=== PATIENT | female | born 1995 | race Caucasian/White ===

== ENCOUNTER → 2024-12-09 | Outpatient (CLI) | payer BC, SELFPAY ==
[2024-12-10 09:34] LABS: BVAG Candida Negative (Negative); Bacterial Vaginosis Markers Negative (Negative); Candida glabrata Negative (Negative); Candida krusei PCR Negative (Negative); Trichomonas Negative (Negative)
== END | disposition home or self-care (01) ==
PROVIDERS: Referring Provider Specialist; Visit Provider Specialist
DX: B37.89 Other sites of candidiasis (principal); N76.0 Acute vaginitis; A59.01 Trichomonal vulvovaginitis
CPT/HCPCS: 81514

== ENCOUNTER → 2024-12-16 | Outpatient (CLI) | payer BC, SELFPAY ==
[2024-12-16 12:06] LABS: Misc Send Out* See Sep Rpt; Quantiferon-TB* See Sep Rpt
[2024-12-16 12:50] LABS: Basophils % (Auto) 1 % (0-2.5); Eosinophils # (Auto) 0.1 Thou/mm3 (0.0-0.5); Eosinophils % (Auto) 2 % (0-10); Hemoglobin 12.8 g/dL (12.0-16.0); Immature Granulocytes % (Auto) 0 % (0-0); Immature Granulocytes Auto 0.03 Thou/mm3 (0.00-0.00); Lymphocytes # (Auto) 1.8 Thou/mm3 (1.0-4.8); Lymphocytes % (Auto) 24 % (10-50); Mean Corpuscular HGB Conc 34.6 g/dl (31.0-37.0); Mean Corpuscular Hemoglobin 29.8 pg (25.0-35.0); Mean Corpuscular Volume 86 fL (80-100); Monocytes # (Auto) 0.4 Thou/mm3 (0.0-0.8); Monocytes % (Auto) 5 % (0-12); Neutrophils % (Auto) 68 % (37-80); Nucleated Red Blood Cell % 0 /100 WBC (0); Platelet Count 287 Thou/mm3 (140-440); RDW Standard Deviation 36.5 fL (36.4-46.3); Red Blood Count 4.29 Miln/mm3 (4.00-5.20); White Blood Count 7.3 Thou/mm3 (3.6-11.0)
[2024-12-16 13:04] LABS: Creatinine (Component) 0.8 mg/dL (0.6-1.3); Glucose 172 mg/dL (74-106); eGFR > 60 See Note
[2024-12-16 13:05] LABS: Glucose Estimated Average 128 mg/dL (80-131); Hemoglobin A1C 6.1 % Hgb (4.8-6.0)
[2024-12-16 13:20] LABS: Hepatitis B Surface Antigen Non Reactive (Non React); Rubella, IgG Antibody Reactive (Immune)
[2024-12-16 13:38] LABS: Beta HCG,Quantitative 96855 mIU/mL (<5.0)
[2024-12-16 14:25] LABS: HIV (1&2) Antibody Rapid Non-Reactive
[2024-12-20 17:51] LABS: HCV RNA, PCR <15 NOT DETECTED IU/mL
[2024-12-21 06:55] LABS: HCV RNA, PCR Log IU <1.18 NOT DETECTED Log IU/mL; HIV Ag/Ab, 4th Gen NON-REACTIVE
== END | disposition home or self-care (01) ==
LOC: COPL 11:32
PROVIDERS: PCP Internal Medicine; Referring Provider Specialist; Visit Provider Specialist
DX: Z34.81 Encounter for supervision of other normal pregnancy, first trimester (principal); Z81.8 Family history of other mental and behavioral disorders
CPT/HCPCS: 36415; 81220; 81243; 82565; 82947; 83036; 84702; 85025; 86480; 86703; 86762; 86850; 86900; 86901; 87340; 87389; 87522

== ENCOUNTER → 2024-12-16 | Outpatient (CLI) | payer BC, SELFPAY ==
[2024-12-16 15:34] LABS: Collection Type, Urine Clean Catch
[2024-12-16 17:11] LABS: Amphetamine/Methamp Scrn,U Negative (Negative); Barbiturate Screen,Urine Negative (Negative); Benzodiazepines Screen,Urine Negative (Negative); Benzoylecgonine Screen, Ur Negative (Negative); Fentanyl Screen,Urine Negative (Negative); Opiate Screen,Urine Negative (Negative); THC Screen,Urine Positive (Negative)
[2024-12-16 17:16] LABS: Bilirubin,Urine Negative (Negative); Blood,Urine Negative (Negative); Clarity,Urine Clear (Clear/Hazy); Color,Urine Yellow (Lt Yel-Yel); Glucose, Urine Negative (Negative); Ketones,Urine 1+ (Negative); Leukocyte Esterase,Urine Negative (Negative); Nitrite,Urine Negative (Negative); Protein,Urine Negative (Neg - Trace); RBC,Urine 3 /hpf (0-3); Specific Gravity,Urine 1.024 (1.001-1.035); Squamous Epithelial Cell,Urine 8 /hpf (0-5); Urobilinogen,Urine Negative mg/dL (0.0-1.0); WBC,Urine 2 /hpf (0-5)
== END | disposition home or self-care (01) ==
LOC: SLDO 15:08
PROVIDERS: Referring Provider Specialist; Visit Provider Specialist
DX: Z34.81 Encounter for supervision of other normal pregnancy, first trimester (principal)
CPT/HCPCS: 80307; 81001; 87086

== ENCOUNTER → 2025-02-10 | Outpatient (CLI) | payer BC, SELFPAY ==
[2025-02-10 17:52] LABS: Basophils % (Auto) 0 % (0-2.5); Eosinophils # (Auto) 0.3 Thou/mm3 (0.0-0.5); Eosinophils % (Auto) 4 % (0-10); Hematocrit 35.3 % (36.0-46.0); Hemoglobin 11.7 g/dL (12.0-16.0); Immature Granulocytes % (Auto) 1 % (0-0); Immature Granulocytes Auto 0.04 Thou/mm3 (0.00-0.00); Lymphocytes % (Auto) 24 % (10-50); Mean Corpuscular HGB Conc 33.1 g/dl (31.0-37.0); Mean Corpuscular Hemoglobin 30.1 pg (25.0-35.0); Mean Corpuscular Volume 91 fL (80-100); Monocytes # (Auto) 0.5 Thou/mm3 (0.0-0.8); Monocytes % (Auto) 6 % (0-12); Neutrophils # (Auto) 5.5 Thou/mm3 (1.8-7.7); Neutrophils % (Auto) 65 % (37-80); Nucleated Red Blood Cell % 0 /100 WBC (0); Platelet Count 266 Thou/mm3 (140-440); RDW Standard Deviation 41.9 fL (36.4-46.3); Red Blood Count 3.89 Miln/mm3 (4.00-5.20); White Blood Count 8.4 Thou/mm3 (3.6-11.0)
[2025-02-10 20:40] LABS: Glucose Estimated Average 111 mg/dL (80-131); Hemoglobin A1C 5.5 % Hgb (4.8-6.0)
[2025-02-10 20:53] LABS: Alanine Aminotransferase 8 U/L (10-49); Albumin, Serum 3.9 gm/dL (3.5-5.0); Albumin/Globulin Ratio 1.9 (1.2-2.2); Alkaline Phosphatase 48 U/L (46-116); Anion Gap 11 (7-16); Aspartate Amino Transferase 11 U/L (0-34); BUN/Creatinine Ratio 12 Ratio (12-20); Bilirubin,Total 0.4 mg/dL (0.3-1.2); Blood Urea Nitrogen 7 mg/dL (9-23); Calcium 8.8 mg/dL (8.3-10.6); Calcium (Corrected) 8.9 mg/dL (8.5-10.1); Carbon Dioxide 24.1 mMol/L (20.0-31.0); Chloride 103 mMol/L (98-107); Creatinine (Component) 0.6 mg/dL (0.6-1.3); Free T4 (Free Thyroxine) 1.02 ng/dL (0.89-1.76); Globulin 2.1 gm/dL (2.3-3.5); Glucose 124 mg/dL (74-106); Osmolality,Calculated 274 (275-295); Potassium 3.9 mMol/L (3.4-5.1); Sodium 138 mMol/L (136-145); Thyroid Stimulating Hormone 1.29 uIU/mL (0.55-4.78); eGFR > 60 See Note
== END | disposition home or self-care (01) ==
LOC: SLDO 16:34
PROVIDERS: Referring Provider Specialist; Visit Provider Specialist
DX: O24.419 Gestational diabetes mellitus in pregnancy, unspecified control (principal); R53.83 Other fatigue; Z3A.00 Weeks of gestation of pregnancy not specified
CPT/HCPCS: 36415; 80053; 83036; 84439; 84443; 85025

== ENCOUNTER 2025-03-16 16:53 | Emergency (ER) | payer BC, SELFPAY ==
[2025-03-16 17:34] VITALS: BP 109/71; PULSE 100; RESP 18; TEMP 37.1; O2SAT 95
--- NOTE | 2025-03-16 17:58 | PD.EDNV ---
Nausea/Vomit./Diarrhea-RME/HPI General Chief complaint: General Adult/Misc Complain Stated complaint: SENT BY PCP FOR DEHYDRATION AND FLUID ADMIN Time Seen by Provider: 03/16/25 17:17 Arrival date/time: 03/16/25 16:53 29-year-old female presents to the emergency department today stating that she was having some nausea and vomiting patient reports that she is really only here for a work note patient reports being 20 weeks reports no abdominal pain no vaginal bleeding no pelvic pain patient reports has a follow-up with her SUSTAINABILITY SPECIALIST tomorrow. Patient reports he contacted her workplace Limitations: no limitations Related Data Allergies Allergy/AdvReac Type Severity Reaction Status Date / Time ciprofloxacin AdvReac Unknown Vomiting Verified 03/16/25 16:57 Review of Systems Review of Systems Systems Reviewed: All systems reviewed, normal except as documented Constitutional Constitutional: Reports system reviewed and no additional complaints, except as documented, Denies fever(s) and Denies headache(s) Eyes Eyes: Reports system reviewed and no additional complaints, except as documented and Denies blurry vision ENT Ears, Nose, Mouth, and Throat: Reports system reviewed and no additional complaints, except as documented, Denies headache(s), Denies nasal congestion and Denies nasal discharge Cardiovascular Cardiovascular: Reports system reviewed and no additional complaints, except as documented, Denies chest pain and Denies dyspnea Respiratory Respiratory: Reports system reviewed and no additional complaints, except as documented, Denies chest congestion, Denies cough and Denies dyspnea Gastrointestinal Gastrointestinal: Reports system reviewed and no additional complaints, except as documented, Denies abdominal pain, Reports nausea and Reports vomiting Integumentary/Breasts Skin/Breast: Reports system reviewed and no additional complaints, except as documented and Denies rash Neurologic Neurologic: Reports system reviewed and no additional complaints, except as documented, Reports as per HPI and Denies headache(s) Past Medical History Past Medical History CARDIAC: Negative Congestive Heart Failure RESPIRATORY: Negative Chronic Obstructive Pulmonary Disease (COPD) GENITOURINARY: Negative Renal Disease ENDOCRINE: Negative Diabetes Mellitus Type 1 or Diabetes Mellitus Type 2 Surgical History SURGICAL: Positive Tonsillectomy Social History SMOKING STATUS: Never smoker ED Exam General Limitations: Present no limitations General appearance: Present alert and in no apparent distress Head Head exam: Present atraumatic Eye Eye exam: Present normal appearance, PERRL and EOMI ENT ENT exam: Present normal exam, normal oropharynx and mucous membranes moist Neck Neck exam: Present normal inspection, full ROM and trachea midline Chest Chest inspection: Present normal inspection and symmetric chest wall rise Respiratory Respiratory exam: Present normal lung sounds bilaterally Cardiovascular Cardiovascular exam: Present regular rate, normal rhythm and normal heart sounds Abdominal Exam Abdominal exam: Present soft and normal bowel sounds Extremities Exam Extremities exam: Present normal inspection and full ROM Back Exam Back exam: Present normal inspection and full ROM Neurological Exam Neurological exam: Present alert, oriented X3, CN II-XII intact, normal gait and reflexes normal; Absent motor sensory deficit Psychiatric Psychiatric exam: Present normal affect and normal mood Skin Skin exam: Present warm, dry, intact and normal color Course Quality Measures none Vital Signs Vital signs: Vital Signs Temperature 98.7 F 03/16/25 17:34 Pulse Rate 100 03/16/25 17:34 Respiratory Rate 18 03/16/25 17:34 Blood Pressure 109/71 03/16/25 17:34 Pulse Oximetry (%) 95 03/16/25 17:34 Oxygen Delivery Method Room Air 03/16/25 17:34 O2 saturation 95% room air within normal limits Nausea/Vomiting/Diarrhea Patient data External records reviewed:: [facility] previous records Clinical information provided by:: patient Social determinants that could affect healthcare access:: none Patient has the following chronic illnesses:: None How is presenting disease/condition affected by chronic disease/condition?: no chronic disease Evaluation data The following diagnostics were reviewed and interpreted by me:: other (specify) Lab and/or radiology exams considered but not ordered:: Consider not ordered Interpretation Summary: N/A Medications / Prescriptions Medications / Prescriptions considered but not ordered:: No med Medication administrations:: No med Consultations Consultation(s) initiated? (list below): No Diagnosis Nausea Differential Diagnosis: gastroenteritis and other (Hyperemesis gravidarum) Most likely diagnosis given after review of the tests above:: Vomiting Admission Indicated Admission indicated?: not indicated Admission Request Was there a request for admission?: No Disposition Plan Disposition Plan: Discharge Discharge Attestation Discharge Attestation: The patient and all family members were given an opportunity to ask questions and understood the discharge instructions. Discharge instructions specifically effects, indications for sooner follow up or return to the emergency department, and the expected course of current diagnosis. Patient condition: Stable Discharge Plan Plan Patient Disposition: HOME (Self Care) Discharge Disposition comment: Stable Problem List Clinical Impression: Nausea and vomiting during Patient/Caregiver Discharge Instructions Education Materials: ED Vomiting (Adult) Additional Instructions: Please keep your appointment with your SUSTAINABILITY SPECIALIST tomorrow for worsening symptoms or concerns return immediately Print Language: Indonesian Stand Alone Forms: Lorelei Award Info., Work/School Release, Patient Portal Info Letter PA/[employer] Supervising Physician PA/[employer] Supervising Physician: dr stevenson
== END 2025-03-16 18:01 | disposition home or self-care (01) ==
LOC: SERX 18:02
PROVIDERS: Emergency Provider Emergency Medicine; PCP Internal Medicine
DX: O21.9 Vomiting of pregnancy, unspecified (principal); Z3A.20 20 weeks gestation of pregnancy
CPT/HCPCS: 99281

== ENCOUNTER → 2025-04-22 | Outpatient (CLI) | payer BC, SELFPAY ==
--- NOTE | 2025-04-22 | XR_ITS ---
Examination: PA chest single view TECHNIQUE: Upright PA chest single view Date and time: April 22, 2025 1317 hours INDICATIONS: Coughing one week. FINDINGS: Normal heart size Lungs are clear. Osseous structures are intact IMPRESSION: No active disease
== END | disposition home or self-care (01) ==
LOC: CDIM 11:57
PROVIDERS: PCP Internal Medicine; Referring Provider Specialist; Visit Provider Specialist
DX: J18.9 Pneumonia, unspecified organism (principal)
CPT/HCPCS: 71045

== ENCOUNTER → 2025-04-22 | Outpatient (CLI) | payer BC, SELFPAY ==
[2025-04-22 14:24] LABS: Coccid Serology, CF (UCD)* See Sep Rpt
== END | disposition home or self-care (01) ==
LOC: SLDO 14:15
PROVIDERS: Referring Provider Specialist; Visit Provider Specialist
DX: J18.9 Pneumonia, unspecified organism (principal)
CPT/HCPCS: 86171

== ENCOUNTER → 2025-05-26 | Outpatient (CLI) | payer BC, SELFPAY ==
[2025-05-26 16:27] LABS: Basophils # (Auto) 0.0 Thou/mm3 (0.0-0.2); Basophils % (Auto) 0 % (0-2.5); Eosinophils # (Auto) 0.3 Thou/mm3 (0.0-0.5); Eosinophils % (Auto) 3 % (0-10); Hematocrit 36.7 % (36.0-46.0); Hemoglobin 11.5 g/dL (12.0-16.0); Immature Granulocytes Auto 0.08 Thou/mm3 (0.00-0.00); Lymphocytes # (Auto) 1.9 Thou/mm3 (1.0-4.8); Lymphocytes % (Auto) 22 % (10-50); Mean Corpuscular HGB Conc 31.3 g/dl (31.0-37.0); Mean Corpuscular Hemoglobin 29.6 pg (25.0-35.0); Mean Corpuscular Volume 95 fL (80-100); Monocytes # (Auto) 0.6 Thou/mm3 (0.0-0.8); Monocytes % (Auto) 7 % (0-12); Neutrophils # (Auto) 5.9 Thou/mm3 (1.8-7.7); Neutrophils % (Auto) 67 % (37-80); Nucleated Red Blood Cell # 0.00 Thou/mm3 (0.00-0.00); Nucleated Red Blood Cell % 0 /100 WBC (0); Platelet Count 251 Thou/mm3 (140-440); RDW Standard Deviation 47.8 fL (36.4-46.3); Red Blood Count 3.88 Miln/mm3 (4.00-5.20); White Blood Count 8.8 Thou/mm3 (3.6-11.0)
[2025-05-26 17:01] LABS: Syphilis Nonreactive (Nonreactive)
== END | disposition home or self-care (01) ==
LOC: SLDO 14:44
PROVIDERS: Referring Provider Specialist; Visit Provider Specialist
DX: Z34.83 Encounter for supervision of other normal pregnancy, third trimester (principal)
CPT/HCPCS: 36415; 85025; 86780

== ENCOUNTER → 2025-07-04 | Outpatient (CLI) | payer BC, SELFPAY ==
[2025-07-05 07:48] LABS: BVAG Candida Negative (Negative); Bacterial Vaginosis Markers Negative (Negative); Candida glabrata Negative (Negative); Candida krusei PCR Negative (Negative); Trichomonas Negative (Negative)
== END | disposition home or self-care (01) ==
LOC: SLDO 14:22
PROVIDERS: Referring Provider Specialist; Visit Provider Specialist
DX: Z34.83 Encounter for supervision of other normal pregnancy, third trimester (principal)
CPT/HCPCS: 81514

== ENCOUNTER 2025-07-22 04:09 | Inpatient (IN) | payer BC, SELFPAY ==
[2025-07-21 11:43] LABS: Basophils # (Auto) 0.0 Thou/mm3 (0.0-0.2); Basophils % (Auto) 0 % (0-2.5); Eosinophils # (Auto) 0.4 Thou/mm3 (0.0-0.5); Eosinophils % (Auto) 5 % (0-10); Hematocrit 35.6 % (36.0-46.0); Hemoglobin 12.0 g/dL (12.0-16.0); Immature Granulocytes Auto 0.06 Thou/mm3 (0.00-0.00); Lymphocytes # (Auto) 2.1 Thou/mm3 (1.0-4.8); Lymphocytes % (Auto) 31 % (10-50); Mean Corpuscular HGB Conc 33.7 g/dl (31.0-37.0); Mean Corpuscular Hemoglobin 29.3 pg (25.0-35.0); Mean Corpuscular Volume 87 fL (80-100); Monocytes # (Auto) 0.5 Thou/mm3 (0.0-0.8); Monocytes % (Auto) 8 % (0-12); Neutrophils # (Auto) 3.8 Thou/mm3 (1.8-7.7); Neutrophils % (Auto) 55 % (37-80); Nucleated Red Blood Cell # 0.00 Thou/mm3 (0.00-0.00); Nucleated Red Blood Cell % 0 /100 WBC (0); Platelet Count 235 Thou/mm3 (140-440); RDW Standard Deviation 39.2 fL (36.4-46.3); Red Blood Count 4.10 Miln/mm3 (4.00-5.20); White Blood Count 6.8 Thou/mm3 (3.6-11.0)
[2025-07-21 11:58] LABS: INR 0.9 (0.9-1.3); Partial Thromboplastin Time 24.4 Seconds (22.0-36.0); Prothrombin Time 10.3 Seconds (9.0-12.2)
[2025-07-21 12:06] LABS: Alanine Aminotransferase 8 U/L (10-49); Albumin, Serum 3.9 gm/dL (3.5-5.0); Albumin/Globulin Ratio 2.0 (1.2-2.2); Alkaline Phosphatase 199 U/L (46-116); Anion Gap 11 (7-16); Aspartate Amino Transferase 17 U/L (0-34); BUN/Creatinine Ratio 8 Ratio (12-20); Bilirubin,Total 0.6 mg/dL (0.3-1.2); Blood Urea Nitrogen < 5 mg/dL (9-23); Calcium 9.2 mg/dL (8.3-10.6); Calcium (Corrected) 9.3 mg/dL (8.5-10.1); Carbon Dioxide 21.7 mMol/L (20.0-31.0); Chloride 105 mMol/L (98-107); Creatinine (Component) 0.6 mg/dL (0.6-1.3); Globulin 2.0 gm/dL (2.3-3.5); Glucose 145 mg/dL (74-106); Osmolality,Calculated 275 (275-295); Potassium 4.1 mMol/L (3.4-5.1); Sodium 138 mMol/L (136-145); Total Protein 5.9 gm/dL (5.7-8.2); eGFR > 60 See Note
[2025-07-21 17:52] LABS: Syphilis Nonreactive (Nonreactive)
[2025-07-22] VITALS (15 sets, daily range): BP systolic 0–115; BP diastolic 0–77; PULSE 81–112; RESP 12–20; TEMP 36.4–36.7; O2SAT 96–100; BMI 35.9
[2025-07-22] MEDS: RINGERS LACTATED 1000 ML 1,000 ML 100 ML IV (04:42)
--- NOTE | 2025-07-22 05:31 | ESHP_ITS ---
Documentation for date of: 07/22/25 OB Labor/Induct. HPI History of Present Illness History of present illness: H and P dictated on STAT line #9 in [place] [id number] Labs Labs: Positive: Rubella Titre, Negative: RPR, Hepatitis B, HIV, Chlamydia, Gonorrhea and Group Beta Strep and Unknown: Herpes Type 1, Herpes Type 2 and Covid-19 Meds Home Medications and Allergies Home Medications ?Medication ?Instructions ?Recorded ?Confirmed ?Type blood sugar diagnostic (Accu-Chek 07/22/25 07/22/25 H istory Guide test strips) lancets (Accu-Chek Softclix 07/22/25 07/22/25 History Lancets) Allergies Allergy/AdvReac Type Severity Reaction Status Date / Time ciprofloxacin AdvReac Unknown Vomiting Verified 07/22/25 04:18 OB Results Labs 07/21/25 11:11 07/21/25 11:11 Labs: Short CBC 07/21/25 Range/Units 11:11 WBC 6.8 (3.6-11.0) Thou/mm3 Hgb 12.0 (12.0-16.0) g/dL Hct 35.6 L (36.0-46.0) % Plt Count 235 (140-440) Thou/mm3 BMP 07/21/25 11:11 Sodium 138 Potassium 4.1 Chloride 105 Carbon Dioxide 21.7 BUN < 5 L Creatinine 0.6 Glucose 145 H Calcium 9.2 Liver Function 07/21/25 Range/Units 11:11 Total Bilirubin 0.6 (0.3-1.2) mg/dL AST 17 (0-34) U/L ALT 8 L (10-49) U/L Alkaline Phosphatase 199 H (46-116) U/L Albumin 3.9 (3.5-5.0) gm/dL
--- NOTE | 2025-07-22 05:45 | ESHP_ITS ---
RE: MUSA ARIZMENDI : 1995 DATE OF ADMISSION: 07/22/2025 This is a 30-year-old 4, para 1-0-2-1 with due date of 07/31 with intrauterine at 38 weeks and 5 days, who is undergoing a primary delivery due to macrosomia. The patient underwent an ultrasound on 07/12 by maternal medicine showing an estimated weight of 4459 g with a projected size of 4783 g or 10 pounds 9 ounces at 39 weeks. She is a pregestational diabetic whose blood sugars at conception were controlled with diet. She is currently on insulin at bedtime. She denies any leaking or bleeding. She reports normal movement. Antepartum testing has been reassuring. echo was normal. anatomic surveys throughout by maternal medicine were normal. ALLERGIES: CIPRO. MEDICATIONS: 1. multivitamin 1 p.o. daily. 2. Aspirin 81 mg 1 p.o. daily. 3. Humulin insulin 50 units subcutaneously at bedtime. PAST MEDICAL HISTORY: Asthma, eczema, type 2 diabetes, seasonal allergies. FAMILY HISTORY: Mother; diabetes, hypertension, heart disease. Father, depression. Maternal grandmother, breast cancer. Maternal grandfather, heart disease. Paternal grandmother, diabetes. OBSTETRIC HISTORY: In 2010, 40-week normal vaginal delivery, 7-lqmvt-18-ounce male, no complications. In 2016, 6-week spontaneous AB with D and C. In 2019, 6-week spontaneous AB with D and C. PAST SURGICAL HISTORY: Tonsillectomy and D and C in 2017 and 2019. SOCIAL HISTORY: The patient uses marijuana. REVIEW OF SYSTEMS: She denies any chest pain, palpitations, cough, fever, shortness of breath or lower extremity pain. PHYSICAL EXAMINATION: VITAL SIGNS: Blood pressure is 110/72, heart rate 88, respirations 18, temperature 98.6. HEENT: Oropharynx and sclerae are clear. LUNGS: Clear to auscultation bilaterally. HEART: Regular rate and rhythm. ABDOMEN: Gravid, consistent with estimated weight 9-1/2 to 10 pounds. PELVIC: Exam deferred. EXTREMITIES: Nontender. SKIN: No gross rashes or lesion. NEUROLOGIC: No focal deficit. ASSESSMENT AND PLAN: Intrauterine at 38 weeks and 5 days, suspected macrosomia, class B diabetes mellitus. delivery. Informed consent was obtained. The patient was made aware of the risks, complications, alternatives, benefits of the proposed procedure and she agrees. DT: 05:31:07 TT: 05:44:00 Ref: [id number] - TID: [id number]
[2025-07-22] MEDS: ceFAZolin/D5W 2 GM IV 2 GM/100 ML BAG IV (05:49)
[2025-07-22] MEDS: CITRIC ACID/SODIUM CITR 15 ML UDC (BICITRA) 30 ML PO (05:50)
[2025-07-22] MEDS: FAMOTIDINE INJ 10 MG/ML VIAL 2 ML 20 MG IV (05:50)
--- NOTE | 2025-07-22 06:11 | ESOP_ITS ---
Operative Note - MERCHANDISE COMPLAINT ADJUSTER Procedure Date of procedure: 07/22/25 Procedure Performed: Primary Low Transverse Delivery via Pfanensteil skin incision Indication: Intrauterine at 38 weeks and 5 days Class B diabetes mellitus Macrosomia Pre-Op diagnosis: Intrauterine at 38 weeks and 5 days Class B diabetes mellitus Macrosomia Post-Op diagnosis: Intrauterine at 38 weeks and 5 days Class B diabetes mellitus Macrosomia Anesthesia type: Spinal Procedure description: After proper informed consent was obtained and the patient was made aware of the risks, complications, alternatives and benefits of the proposed procedure she was taken to the operating room where she underwent induction of spinal anesthesia. She was prepped and draped in the usual sterile fashion. A timeout was performed.? A Pfannenstiel skin incision was made with the scalpel and carried through to the underlying layer of fascia with the Bovie. The fascia was nicked in the midline incision and the incision was extended bilaterally with the Bovie. The inferior aspect of the fascial incision was grasped with Peyman clamps elevated and the underlying rectus muscle dissected off with the Bovie. The superior aspect the fascial incision was grasped with Peyman clamps elevated and the underlying rectus muscle dissected off with the Bovie. The rectus muscles were in the midline. The peritoneum was grasped between 2 Holloway clamps and entered sharply with the Metzenbaum scissors. The peritoneum was extended superiorly and inferiorly with good visualization of the bladder. The vesicouterine peritoneum was incised transversely and the bladder flap created digitally. A Mikey blade was inserted. A low transverse incision was made in the uterus with a scapel and the incision was extended digitally. The 's head delivered and the mouth and nose were suctioned with the bulb suction. The shoulder and body delivered atraumatically. The cord was clamped after 30 second delayed cord clamping and the cord was cut.? The male was handed off to the waiting Pediatric staff, cord blood was collected for lab testing. The placenta was removed complete and intact. The uterus was exteriorized and cleared of all clots and debris. The uterine incision was closed with #1-0 chromic catgut suture in a running interlocking fashion. A second layer of the same suture was used to imbricate the first layer and obtain excellent hemostasis. The vesicouterine peritoneum was closed with 2-0 chromic catgut suture in a running fashion. The firm uterus was returned to the abdomen. The gutters were cleared of all clots and debris. The peritoneum was closed with 0 chromic catgut suture in running fashion. The rectus muscle was closed with 0 chromic catgut suture. The fascia was closed with 0 Vicryl beginning at each angle and ending in the center in a running fashion. The subcutaneous tissue was irrigated with warmed normal saline solution and found to be hemostatic. The subcutaneous tissue was closed with 2-0 chromic catgut suture in a running fashion. The skin was closed with 4-0 Monocryl. A Dermabond Prineo dressing was applied and a sterile pressure dressing was applied.? She tolerated the procedure well. Counts were correct. I discussed with the patient the nature of her condition, intraoperative findings and expectation for recovery all? questions answered. Specimen: none Estimated blood loss (ml): 500 Findings: Live male infant APGARs 8/9 Amniotic fluid clear Placenta removed complete and intact Uterus, ovaries and tubes wnl. Complications: none Surgical staff Yusra Price, Surgeon. Operation Date: 07/22/25 06:15 <No data on this case meets the specified criteria> Diagnosis Discharge Diagnosis (1) delivery delivered: Status: Acute (2) Macrosomia affecting management of mother in third trimester, single gestation: Status: Acute (3) Modified White class B1 pregestational diabetes mellitus: Status: Acute Problem List Completed Was Problem List Reviewed/Reconciled?: Yes
--- NOTE | 2025-07-22 06:11 | ESDS_ITS ---
DS: Providers Provider Date of admission: 07/22/25 04:09 Primary care physician: Physician No Primary/Family Admitting Provider: Jd Price MD Attending Provider on Admission: Jd Price MD Attending Provider on DC: Jd Price MD Discharging Provider: Jd Price MD DS: Diagnosis Problem List Completed Was Problem List Reviewed/Reconciled?: Yes Summary/Hosp Course Brief History: H and P dictated on STAT line #9 in ance [id number] Peripartum Data Delivery Method: Low Transverse Episiotomy Description: None Procedures: Procedures Operation Date: 07/22/25 06:15 <No data on this case meets the specified criteria> Time Spent with Patient Time attestation: Total time spent providing and/or coordinating discharge services: Exam Vital Signs Pulse BP 112 H 113/66 07/22/25 05:53 07/22/25 05:53 Discharge Plan Plan Patient Disposition: HOME (Self Care) Patient condition on transfer: Stable Prescriptions/Referrals Prescriptions/Med Rec: New ibuprofen 600 mg tablet 600 mg PO QID PRN (Reason: pain) Qty: 30 0RF Discontinued (DME) Accu-Chek Guide test strips Strip (DME) lancets [Accu-Chek Softclix Lancets] Misc Patient Comments: USE 1 LANCET DIRECTED FOUR TIMES A DAY DIRECTED TO CHECK BLOOD SUGAR Referrals: No Primary/Family,Physician [Primary Care Provider] Patient/Caregiver Discharge Instructions Discharge Activity: activity as tolerated Other Discharge Activity Instructions:: She already has a Rx for [place]. Follow up office 1 week. Education Materials: Breast Care After , After a , C Section Dc Print Language: Setswana Stand Alone Forms: Lorelei Award Info., Patient Portal Info Letter Discharge Order Discharge Orders: Discharge (Routine); Ordered 07/24/25 Ordered By: Jd Price Planned Discharge Date 07/24/25
[2025-07-22] MEDS: OXYTOCIN in NS 20 units 20 UNIT/1,000 ML BAG 125 UNIT IV ×2 (08:08→16:50)
[2025-07-22 11:14] LABS: Amphetamine/Metham Scrn,Ur OB Negative (Negative); Benzoylecgonine Screen, Ur OB Negative (Negative); Opiate Screen,Urine OB Negative (Negative); THC Screen,Urine OB Negative (Negative)
[2025-07-22] MEDS: KETOROLAC INJ 30 MG/ML VIAL IVP ×2 (12:56→21:12)
[2025-07-22 13:08] LABS: Basophils # (Auto) 0.0 Thou/mm3 (0.0-0.2); Basophils % (Auto) 0 % (0-2.5); Eosinophils # (Auto) 0.0 Thou/mm3 (0.0-0.5); Eosinophils % (Auto) 0 % (0-10); Hematocrit 34.4 % (36.0-46.0); Hemoglobin 11.6 g/dL (12.0-16.0); Immature Granulocytes Auto 0.06 Thou/mm3 (0.00-0.00); Lymphocytes # (Auto) 1.1 Thou/mm3 (1.0-4.8); Lymphocytes % (Auto) 7 % (10-50); Mean Corpuscular HGB Conc 33.7 g/dl (31.0-37.0); Mean Corpuscular Hemoglobin 29.0 pg (25.0-35.0); Mean Corpuscular Volume 86 fL (80-100); Monocytes # (Auto) 1.0 Thou/mm3 (0.0-0.8); Monocytes % (Auto) 6 % (0-12); Neutrophils # (Auto) 13.8 Thou/mm3 (1.8-7.7); Neutrophils % (Auto) 86 % (37-80); Nucleated Red Blood Cell # 0.00 Thou/mm3 (0.00-0.00); Nucleated Red Blood Cell % 0 /100 WBC (0); Platelet Count 211 Thou/mm3 (140-440); RDW Standard Deviation 39.0 fL (36.4-46.3); Red Blood Count 4.00 Miln/mm3 (4.00-5.20); White Blood Count 16.0 Thou/mm3 (3.6-11.0)
--- NOTE | 2025-07-22 16:22 | PC.NURSE ---
Pt. provided oral hydration and educated on importance of drinking water
[2025-07-22] MEDS: ONDANSETRON INJ 2 MG/ML INJ 2 ML 4 MG IVP (17:09)
[2025-07-23] VITALS: BP 101/66; PULSE 82; RESP 13; TEMP 36.6; O2SAT 97
[2025-07-23 03:37] VITALS: BP 95/61; PULSE 84; RESP 18; TEMP 36.6; O2SAT 96
[2025-07-23 07:48] VITALS: BP 97/65; PULSE 81; RESP 17; TEMP 36.7; O2SAT 99
[2025-07-23] MEDS: DOCUSATE SOD 100 MG CAPSULE PO (08:11)
[2025-07-23] MEDS: HYDROcodone/APAP 5/325 TABLET 2 TAB PO ×2 (08:12→15:39)
--- NOTE | 2025-07-23 11:24 | ESPR_ITS ---
RE: MUSA ARIZMENDI : 1995 DATE OF SERVICE: 07/23/2025 S: The patient denies any problem or complaints. She is voiding and ambulating and tolerating her regular diet and passing flatus. She denies any excessive vaginal bleeding. She denies any dizziness or lightheadedness. She denies any chest pain, palpitations, shortness of breath, or lower extremity pain. Bedside glucose is 93. O: Vital Signs: Blood pressure is 97/65, heart rate 81, respirations 17, temperature 98.0, pulse oximetry is 99% on room air. Lungs: Clear to auscultation bilaterally. Heart: Regular rate and rhythm. Abdomen: Dressing dry and intact. Fundus is firm. Extremities: Nontender. LABORATORY DATA: Hemoglobin pre-delivery is 12.0, post-delivery is 11.6. ASSESSMENT: Postop day #1 status post primary low transverse section, class B diabetes mellitus. Blood sugar controlled, on ADA diet. P: Continue ADA diet. Remove dressing. Discontinue IV. Encourage ambulation. support. Possible discharge home tomorrow. DT: 09:21:37 TT: 11:23:00 Ref: [id number] - TID: [id number]
[2025-07-23 12:00] VITALS: BP 99/64; PULSE 83; RESP 18; TEMP 36.7; O2SAT 99
[2025-07-23] MEDS: IBUPROFEN TAB 400 MG TABLET 800 MG PO ×2 (12:36→21:08)
--- NOTE | 2025-07-23 15:25 | PD.LDDELS ---
Data ([place]) Data Hx Section: No : 4 Delivery Data ([place]) Labor Data Induction/Augmentation Agent: None ROM date: 07/22/25 ROM time: 06:31 Amniotic membrane rupture type: Artificial Amniotic fluid description: Clear Delivery Data EDC: 07/31/25 EDC calculated by:: LMP/early US confirmation delivery date: 07/22/25 [place] delivery time: 06:32 Gestational age (weeks): 38 Gestational age (days): 5 Placenta delivery date: 07/22/25 Placenta delivery time: 06:33 Delivered by: Jd Price Delivery nurse: REAL Lester nurse: EMRE DAVIES Api Product Manager at delivery: No Support person(s) at delivery: FATHER OF INFANT Other staff at delivery: SEE ORM NOTES Delivery Method Delivery method: Low Transverse Presentation: Vertex position: OA Anesthesia Type Anesthesia Type: Spinal Anesthesia type: Spinal Placenta Placenta delivery description: Manual Removal Cord blood sent to lab: Yes cord blood collection: Cord Blood Type Episiotomy Episiotomy description: None EBL Estimated blood loss (ml): 500 Umbilical Cord cord description: 3 Vessels Additional Procedures None Complications Complications: None [place] Data ([place]) [place] Data order: 1 's gender: Male Identification band number: [id number] weight (gms): 9 lb 9.089 oz Weight (pounds): 9 lbs and 9.1 ozs 1 minute: 9 5 minutes: 9
[2025-07-23 19:36] VITALS: BP 95/60; PULSE 88; RESP 19; TEMP 36.4; O2SAT 98
[2025-07-24 03:10] VITALS: BP 93/61; PULSE 92; RESP 18; TEMP 36.7; O2SAT 99
[2025-07-24] MEDS: HYDROcodone/APAP 5/325 TABLET 1 TAB PO (03:38)
[2025-07-24 07:00] VITALS: BP 96/61; PULSE 82; RESP 16; TEMP 36.8; O2SAT 98
--- NOTE | 2025-07-24 07:08 | ESPR_ITS ---
RE: MUSA ARIZMENDI : 1995 DATE OF SERVICE: 07/24/2025 Postop day number 2. The patient denies any problem or complaint. She is voiding. She is ambulating. She is tolerating regular diet. She is passing flatus. She denies any excessive vaginal bleeding. She denies any dizziness or lightheadedness. She denies any chest pain, palpitations, shortness of breath or lower extremity pain. OBJECTIVE: Vital Signs: Blood pressure 93/61, heart rate 92, respirations 18, temperature is 98.0, pulse oximetry is 99% on room air. Lungs: Clear to auscultation bilaterally. Heart: Regular rate and rhythm. Abdomen: Incision clear and intact. Fundus is firm. Extremities: Nontender. ASSESSMENT: Postoperative day number 2, status post delivery. PLAN: Discharge home. Discharge instructions given. Follow up in the office in 1 week. Continue ADA diet. DT: 06:58:25 TT: 07:06:00 Ref: [id number] - TID: [id number]
[2025-07-24] MEDS: DOCUSATE SOD 100 MG CAPSULE PO (07:31)
[2025-07-24] MEDS: IBUPROFEN TAB 400 MG TABLET 800 MG PO (07:31)
--- NOTE | 2025-07-24 09:44 | PC.NURSE ---
Cleared by Rahel from social professionals
--- NOTE | 2025-07-24 09:58 | PC.SS ---
CODING SPECIALIST, Lyn, met with patient [id number] to do initial assessment due to scoring greater than 10 on post- depression screening. CODING SPECIALIST introduced herself, role in the agency, reason for visit, and discussed limits of confidentiality. Patient appeared alert and oriented to self, time, place, and situation. Patient appears stated age. Patient made good eye contact. Patient?s attitude appeared pleasant and cooperative. Patient?s behavior appeared ordinary. Patient?s mood appears ordinary. No signs of delusions or hallucinations. This is 30-year-old, , single female who presented to the hospital to deliver her son, Kenneth. Patient confirmed her address and phone number. Patient lives in a house with her father: Anish, stepmother, and 14-year-old child. Father of the child, Jj Bingham ([phone]). Patient is independent with all daily activities; she denies any DME use. Patient declined any involvement with CWS. Patient declined any domestic violence at home. Patient reported a history of THC use prior to ; however, as soon as she was informed of , she stopped consuming THC. Patient denied any current substance use. Patient denies any history or current mental health illnesses. She denies receiving any outpatient mental health services. Patient denies any history of suicide attempts, 5150 holds. Patient attributed her PPD score to possibly misreading the questions due to exhaustion. Patient reports feeling happy and excited to return home. Patient reports having all the equipment for the baby. SW provided psychoeducation regarding baby blues and Post- Depression. Patient declined needing any outpatient resources. Patient reported that her father, Anish, stepmother and life-partner, Jj will provide physical support with her son, Kenneth.
== END 2025-07-24 10:12 | disposition home or self-care (01) | DRG 786 ==
LOC: S4SX 04:45 → S4NX 06:02
PROVIDERS: Admitting Provider Specialist; Visit Provider Specialist
PROC: 10D00Z1 Extraction of Products of Conception, Low, Open Approach (ICD-10-PCS; CPT 59514; principal; 2025-07-22 06:00)
DX: O36.63X0 Maternal care for excessive fetal growth, third trimester, not applicable or unspecified (principal); O24.12 Pre-existing type 2 diabetes mellitus, in childbirth; Z3A.38 38 weeks gestation of pregnancy; Z37.0 Single live birth; Z79.4 Long term (current) use of insulin
CPT/HCPCS: 36415; 80053; 80307; 85025; 85610; 85730; 86780; 86850; 86900; 86901; J0689; J1885; J2274; J2371; J2405; J2590; J3010; J3490; J7120; A9270; J2270

== ENCOUNTER 2025-08-31 17:17 | Observation (INO) | payer BC, SELFPAY ==
[2025-08-31 17:26] VITALS: BP 121/75; PULSE 107; RESP 18; TEMP 36.8; O2SAT 96; BMI 32.3
--- NOTE | 2025-08-31 17:43 | XR_ITS ---
Examination: Breast ultrasound, unilateral, right complete Date and time of exam: August 31, 2025, 1942 hours INDICATIONS: Right breast pain and swelling beginning 2 days ago, patient lactating Technique: Real-time galicia scale ultrasonographic imaging performed right breast including all 4 quadrants as well as nipple retroareolar and axillary region. Findings: 9:00 abscess with internal echoes and irregular margins, 3.7 x 1.5 x 3.2 cm IMPRESSION: Findings most consistent with 9:00 right breast abscess 3.7 x 1.5 x 3.2 cm Continued follow-up ultrasound examinations strongly recommended post therapy to document clearing
--- NOTE | 2025-08-31 17:44 | PD.EDRME ---
Rapid Medical Screening Exam RME Arrival date/time: 08/31/25 17:17 30-year-old female presents to the Emergency Department for complaint of right breast pain patient reports her breast is engorged currently she is on a course of antibiotics patient reports symptoms of not improved and her DIRECTOR CLINICAL APPLICATIONS Dr Price sent her here for further evaluation Chief Complaint: Skin/Abscess/Foreign Body Time Seen by Provider: 08/31/25 17:43 Vital signs: Vital Signs Temperature 98.3 F 08/31/25 17:26 Pulse Rate 107 H 08/31/25 17:26 Respiratory Rate 18 08/31/25 17:26 Blood Pressure 121/75 08/31/25 17:26 Pulse Oximetry (%) 96 08/31/25 17:26 Oxygen Delivery Method Room Air 08/31/25 17:26
[2025-08-31] MEDS: HYDROcodone/APAP 5/325 TABLET 1 TAB PO (18:10)
[2025-08-31 18:36] LABS: Basophils # (Auto) 0.0 Thou/mm3 (0.0-0.2); Basophils % (Auto) 1 % (0-2.5); Eosinophils # (Auto) 0.6 Thou/mm3 (0.0-0.5); Eosinophils % (Auto) 7 % (0-10); Hematocrit 36.9 % (36.0-46.0); Hemoglobin 12.2 g/dL (12.0-16.0); Immature Granulocytes Auto 0.05 Thou/mm3 (0.00-0.00); Lymphocytes # (Auto) 2.5 Thou/mm3 (1.0-4.8); Lymphocytes % (Auto) 30 % (10-50); Mean Corpuscular HGB Conc 33.1 g/dl (31.0-37.0); Mean Corpuscular Hemoglobin 28.6 pg (25.0-35.0); Mean Corpuscular Volume 86 fL (80-100); Monocytes # (Auto) 0.7 Thou/mm3 (0.0-0.8); Monocytes % (Auto) 8 % (0-12); Neutrophils # (Auto) 4.6 Thou/mm3 (1.8-7.7); Neutrophils % (Auto) 54 % (37-80); Nucleated Red Blood Cell # 0.00 Thou/mm3 (0.00-0.00); Nucleated Red Blood Cell % 0 /100 WBC (0); Platelet Count 340 Thou/mm3 (140-440); RDW Standard Deviation 39.1 fL (36.4-46.3); Red Blood Count 4.27 Miln/mm3 (4.00-5.20); White Blood Count 8.5 Thou/mm3 (3.6-11.0)
[2025-08-31 18:49] LABS: Alanine Aminotransferase 40 U/L (10-49); Albumin, Serum 4.6 gm/dL (3.5-5.0); Albumin/Globulin Ratio 1.7 (1.2-2.2); Alkaline Phosphatase 158 U/L (46-116); Anion Gap 10 (7-16); Aspartate Amino Transferase 21 U/L (0-34); BUN/Creatinine Ratio 14 Ratio (12-20); Bilirubin,Total 0.3 mg/dL (0.3-1.2); Blood Urea Nitrogen 14 mg/dL (9-23); Calcium 9.7 mg/dL (8.3-10.6); Calcium (Corrected) 9.7 mg/dL (8.5-10.1); Carbon Dioxide 29.3 mMol/L (20.0-31.0); Chloride 102 mMol/L (98-107); Creatinine (Component) 1.0 mg/dL (0.6-1.3); Estimated Creatinine Clearance 88.5 mL/min (>60); Globulin 2.7 gm/dL (2.3-3.5); Glucose 137 mg/dL (74-106); Osmolality,Calculated 283 (275-295); Potassium 4.2 mMol/L (3.4-5.1); Sodium 141 mMol/L (136-145); Total Protein 7.3 gm/dL (5.7-8.2); eGFR > 60 See Note
--- NOTE | 2025-08-31 19:01 | PD.EDSKIN ---
ED Skin Abcess FB-RME/HPI General Chief complaint: Skin/Abscess/Foreign Body Stated complaint: Clogged duct right breast Time Seen by Provider: 08/31/25 17:43 Arrival date/time: 08/31/25 17:17 Limitations: no limitations RME / HPI RME / HPI narrative: 08/31/25 17:17 30-year-old female presents to the Emergency Department for complaint of right breast pain patient reports her breast is engorged currently she is on a course of antibiotics patient reports symptoms of not improved and her HOME HOUSEKEEPER Dr Price sent her here for further evaluation Dr. Gleason evaluation Patient is 30 yo female that is in the ED with concern for clogged duct on the right breast. She is currently taking abx, follows with Dr. Price. Patient states that she has been feeling chills. Patient is 6 weeks . Has been trying to pump and dry out her breastmilk with interventions that she read on the Internet, and recently noticed that her right breast is hurting, is swollen. Denies any nipple retraction, fevers abdominal pain dysuria hematuria melena bloody stool no abnormal discharge from her nipple patient is allergic to Cipro. Related Data Previous Rx's ?Medication ?Instructions ?Recorded ibuprofen 600 mg tablet 600 mg PO QID PRN pain #30 tabs 07/24/25 Allergies Allergy/AdvReac Type Severity Reaction Status Date / Time ciprofloxacin AdvReac Unknown Vomiting Verified 08/31/25 17:21 ED Exam General Limitations: Present no limitations General appearance: Present alert and in no apparent distress Head Head exam: Present atraumatic and normocephalic Eye Eye exam: Present normal appearance and PERRL ENT ENT exam: Present normal exam and normal oropharynx Neck Neck exam: Present normal inspection and full ROM Chest Chest inspection: Present other (right breast ttp along the lateral surface, approximately 4 cm area of induration, warm, erythematous, no nipple retraction, no nipple discharge) Respiratory Respiratory exam: Absent respiratory distress Cardiovascular Cardiovascular exam: Present tachycardia Abdominal Exam Abdominal exam: Present soft; Absent distention or tenderness Extremities Exam Extremities exam: Present normal inspection Neurological Exam Neurological exam: Present alert and other (no FND) Psychiatric Psychiatric exam: Present normal affect Skin Skin exam: Present warm Course Quality Measures none Orders Category Date Time Status Admit to Inpatient Status Routine Admission 08/31/25 19:32 Active condition [Patient Condition] Routine Admission 08/31/25 Ordered IR abscess drainage Stat Exams 08/31/25 Ordered US breast RT complete Stat Exams 08/31/25 17:43 Completed Blood Culture (Lab) Stat Lab 08/31/25 19:27 Ordered CBC Stat Lab 08/31/25 18:06 Completed CMP [Comprehensive Metabolic Panel] Stat Lab 08/31/25 18:06 Completed HYDROcodone*/APAP 5/325 [[place] 5/325] Med 08/31/25 17:47 Discontinued 1 tab PO X1 ONE Vancomycin Pharmacy to Dose Med 08/31/25 19:28 Discontinued 1 each IV STAT STA Vancomycin/D5w 1500 mg Ivpb 300 ml Med 08/31/25 19:45 Active IV X1 Code Status Routine Oth 08/31/25 19:33 Ordered Vital Signs Vital signs: Vital Signs Temperature 98.3 F 08/31/25 17:26 Pulse Rate 107 H 08/31/25 17:26 Respiratory Rate 18 08/31/25 17:26 Blood Pressure 121/75 08/31/25 17:26 Pulse Oximetry (%) 96 08/31/25 17:26 Oxygen Delivery Method Room Air 08/31/25 17:26 Skin / Abscess / Foreign Body MDM Narrative MDM Narrative:: Patient is a 30 yo female that is in the ED with concern for clogged right breast duct, abscess, cellulitis. VS and exam as listed. Prior provider evaluated patient ordered labs and breast ultrasound. Offered medications for symptom relief. Labs without any acute hematologic or significant metabolic abnormality. Breast ultrasound with evidence of 3.7 x 1.5 x 3.2 cm right sided breast abscess at approximately the 9 o'clock position. Discussed case with patient's superintendent of generation Dr. Price, states that he will admit the patient. He will put in orders for antibiotics. Recommends IR guided drainage. I consulted our on-call surgeon, no answer. I placed an order for the IR guided drainage. Updated patient on results of her workup, in agreement with treatment plan. Patient data External records reviewed:: [facility] previous records Clinical information provided by:: patient Social determinants that could affect healthcare access:: none Patient has the following chronic illnesses:: se mdm How is presenting disease/condition affected by chronic disease/condition?: no chronic disease Evaluation data The following diagnostics were reviewed and interpreted by me:: lab results and radiology exam(s) Lab and/or radiology exams considered but not ordered:: None Interpretation Summary: See MDM Medications / Prescriptions Medications or Prescriptions considered but not ordered:: None Medication administrations:: Medication Administration History Vancomycin HCl/Dextrose (Vancomycin/D5w 1500 Mg Ivpb) 300 mls @ 120 mls/hr IV X1 ONE Stop: 08/31/25 22:14 Discontinued Medications Hydrocodone Bitart/Acetaminophen (Hydrocodone/[place] 5/325 Tablet) 1 tab PO X1 ONE Stop: 08/31/25 17:48 Last Admin: 08/31/25 18:10 Dose: 1 tab Documented By: Pharmacy Consult (Vancomycin Pharmacy To Dose 1 Each Each) 1 each IV STAT STA Stop: 08/31/25 19:29 See above Consultations Consultation(s) initiated? (list below): Yes Diagnosis Skin/Abscess Differential Diagnosis: other Most likely diagnosis given after review of the tests above:: Right-sided breast abscess Admission Indicated Admission indicated?: indicated Admission Request Was there a request for admission?: Yes Admission Attestation Admission request attestation: Discussed case with Hospitalist service regarding admission. Discussed patients ED course, exam findings, labs, and radiology results. The Hospitalist [agrees] to accept the patient for admission. Disposition Plan Disposition Plan: Admit Discharge Plan Plan Patient Disposition: Admit Acute Care w/in Hospital Prescriptions/Referrals Prescriptions/Med Rec: No Action ibuprofen 600 mg tablet 600 mg PO QID PRN (Reason: pain) Qty: 30 0RF Referrals: Tru Rodrigez MD [Primary Care Provider, Nephrology] - In 1 week Problem List Clinical Impression: Abscess of breast, right Patient/Caregiver Discharge Instructions Print Language: Iranian Stand Alone Forms: [facility] Award Info., Patient Portal Info Letter
--- NOTE | 2025-08-31 19:47 | PD.GYNHP ---
Documentation for date of: 08/31/25 [employer]IC - HPI History of Present Illness History of present illness: Ms. ARZIMENDI is a 30 year old female ADMITTED FOR IV ANTIBIOTICS AND INTERVENTIONAL RADIOLOGY DRAINAGE OF RIGHT BREAST ABSCESS IN THIS LACTATING PATIENT WHO IS 5 WEEKS . See H and P dictated on STAT line #9 in [facility]: [id number] Meds Home Medications and Allergies Allergies Allergy/AdvReac Type Severity Reaction Status Date / Time ciprofloxacin AdvReac Unknown Vomiting Verified 08/31/25 17:21 Exam - [employer] MECH[employer]IC Vital Signs Temp Pulse Resp BP Pulse Ox O2 Del Method 98.3 F 107 H 18 121/75 96 Room Air 08/31/25 17:26 08/31/25 17:26 08/31/25 17:26 08/31/25 17:26 08/31/25 17:26 08/31/25 17:26 [employer] MECH[employer]IC - Results Labs 08/31/25 18:06 08/31/25 18:06 Labs: Short CBC 08/31/25 Range/Units 18:06 WBC 8.5 (3.6-11.0) Thou/mm3 Hgb 12.2 (12.0-16.0) g/dL Hct 36.9 (36.0-46.0) % Plt Count 340 D (140-440) Thou/mm3 BMP 08/31/25 18:06 Sodium 141 Potassium 4.2 Chloride 102 Carbon Dioxide 29.3 BUN 14 Creatinine 1.0 Glucose 137 H Calcium 9.7 Liver Function 08/31/25 Range/Units 18:06 Total Bilirubin 0.3 (0.3-1.2) mg/dL AST 21 (0-34) U/L ALT 40 (10-49) U/L Alkaline Phosphatase 158 H (46-116) U/L Albumin 4.6 (3.5-5.0) gm/dL Quality Measures Quality Measures none
[2025-08-31 20:45] VITALS: BP 118/82; PULSE 81; RESP 16; TEMP 36.9; O2SAT 99
[2025-08-31 20:49] LABS: Fibrinogen 469 mg/dL (175-375); INR 0.9 (0.9-1.3); Partial Thromboplastin Time 20.0 Seconds (22.0-36.0); Prothrombin Time 9.8 Seconds (9.0-12.2)
[2025-08-31 20:53] VITALS: BP 118/82; PULSE 84; RESP 18; TEMP 36.8; O2SAT 97
[2025-08-31] MEDS: VANCOMYCIN/D5W 1500 MG IVPB 300 ML 120 MG IV (21:10)
[2025-08-31] MEDS: SODIUM CHLORIDE 0.9% 1000 ML 1,000 ML 75 ML IV (21:11)
[2025-08-31 21:27] VITALS: BMI 31.7
--- NOTE | 2025-08-31 23:44 | PC.NURSE ---
PT W/ C/O ITCHINESS TO SCALP. STATED THAT SHE PREVIOUSLY HAD A REACTION TO NORCO POST , STATES SHE DEVELOPED ITCHINESS AND RASH. SHE RECEIVED ONE DOSE OF NORCO IN ED, STATING SHE FORGOT ABOUT THE REACTION TO PAIN MEDICATION THAT WAS GIVEN AFTER DELIVERING HER BABY 6 WEEKS AGO. NEW ALLERGY PLACED IN CHARGE. DR. FLORES MADE AWARE. NEW ORDERS RECEIVED FOR BENADRYL AND IBUPROFEN.
[2025-08-31] MEDS: IBUPROFEN TAB 400 MG TABLET 800 MG PO (23:55)
[2025-09-01] VITALS: BP 101/62; PULSE 93; RESP 19; TEMP 37.1; O2SAT 99
[2025-09-01 04:00] VITALS: BP 99/54; PULSE 63; RESP 18; TEMP 36.1; O2SAT 98
[2025-09-01 06:02] LABS: Basophils # (Auto) 0.1 Thou/mm3 (0.0-0.2); Basophils % (Auto) 1 % (0-2.5); Eosinophils # (Auto) 0.6 Thou/mm3 (0.0-0.5); Eosinophils % (Auto) 7 % (0-10); Hematocrit 37.7 % (36.0-46.0); Hemoglobin 12.3 g/dL (12.0-16.0); Immature Granulocytes Auto 0.06 Thou/mm3 (0.00-0.00); Lymphocytes # (Auto) 2.7 Thou/mm3 (1.0-4.8); Lymphocytes % (Auto) 32 % (10-50); Mean Corpuscular HGB Conc 32.6 g/dl (31.0-37.0); Mean Corpuscular Hemoglobin 28.3 pg (25.0-35.0); Mean Corpuscular Volume 87 fL (80-100); Monocytes # (Auto) 0.9 Thou/mm3 (0.0-0.8); Monocytes % (Auto) 11 % (0-12); Neutrophils # (Auto) 4.1 Thou/mm3 (1.8-7.7); Neutrophils % (Auto) 49 % (37-80); Nucleated Red Blood Cell # 0.00 Thou/mm3 (0.00-0.00); Nucleated Red Blood Cell % 0 /100 WBC (0); Platelet Count 355 Thou/mm3 (140-440); RDW Standard Deviation 39.1 fL (36.4-46.3); Red Blood Count 4.35 Miln/mm3 (4.00-5.20); White Blood Count 8.3 Thou/mm3 (3.6-11.0)
--- NOTE | 2025-09-01 07:16 | ESPR_ITS ---
RE: MUSA ARIZMENDI : 1995 DATE OF SERVICE: 09/01/2025 SUBJECTIVE: Patient reports having itching after taking the hydrocodone yesterday and hives. She reports the right breast is still markedly tender. She denies any fever. She is tolerating a regular diet. She is voiding without difficulty. She is passing flatus. She denies any chest pain, palpitations, shortness of breath, flank pain, or lower extremity pain or swelling. OBJECTIVE: Vital Signs: Blood pressure is 99/54, heart rate is 63, respirations 18, and temperature is 97.0. Lungs: Clear to auscultation bilaterally. Heart: Regular rate and rhythm. Abdomen: Nontender. Incision is clear and intact. Extremities: Nontender. ASSESSMENT: Postoperative day #7 status post delivery, readmission for lactating mastitis complicated by abscess formation in the right breast. PLAN: Continue vancomycin with plan for ultrasound-guided percutaneous drainage of right breast abscess today. I discussed with the patient the nature of her condition, the recommended treatment plan. All questions were answered. DT: 07:05:16 TT: 07:15:00 Ref: [id number] - TID: [id number]
[2025-09-01 08:00] VITALS: BP 106/57; PULSE 78; RESP 18; TEMP 36.4; O2SAT 95
--- NOTE | 2025-09-01 09:19 | XR_ITS ---
Examination: Breast ultrasound limited, right complete Date and time of exam: September 01, 2025, 1206 hours INDICATIONS: Left breast abscess noted on ultrasound study August 31, 2025 Technique: Real time galicia scale ultrasonographic imaging of the breast , retroarelar and axillary region. Findings: Mass lesion in right breast 9 o'clock position approximately 4 cm, solid Impression: Solid infectious mass right breast, not currently amenable to catheter drainage
--- NOTE | 2025-09-01 09:19 | PC.NURSE ---
Notified Katie vale of dr. teixeira recommendation for Abscess drain to be done under Ultrasound.
--- NOTE | 2025-09-01 09:35 | ESHP_ITS ---
RE: MUSA ARIZMENDI : 1995 DATE OF ADMISSION: 08/31/2025 HISTORY OF PRESENT ILLNESS: This is a 30-year-old 4, para 2-0-2-2 with right breast abscess who presented to the office today complaining of a clogged milk duct. She underwent breast ultrasound in the ER showing a 3.7 x 1.5 x 3.2 cm abscess at the 9 o'clock position of the right breast. The patient is lactating. She is approximately 5 weeks after a cesarian delivery which was uncomplicated. She was being treated for mastitis with Dicloxacillin and after being on antibiotic therapy for seven days the mass developed. She denies any fever. She denies any nausea or vomiting. She is tolerating her ADA diet. She is voiding without difficulty. She has got regular bowel movements. She denies any bloody nipple discharge. She desires to continue breast feeding. She is currently on diabetic diet and no other medications for diabetes which has been under control. ALLERGIES: CIPRO. MEDICATIONS: multivitamin 1 p.o. daily. Dicloxacillin 500 mg 1 p.o. q. 6 hours. PAST MEDICAL HISTORY: Asthma, eczema, type 2 diabetes, sessional allergies. FAMILY HISTORY: Mother has diabetes, hypertension, heart disease. Father has depression, maternal grandmother breast cancer and maternal grandfather heart disease. Maternal grandmother diabetes. OB HISTORY: 2010, 40 weeks normal vaginal delivery, 8 pounds 11 once male, no complications. 2017, 6 weeks spontaneous AB with D and C. In 2019 she had a 6 weeks spontaneous AB with D and C. 09/21/2025 primary cesarian delivery at 38 weeks and 5 days gestation for macrosomia, baby was 9 pounds, 9 ounces. PAST SURGICAL HISTORY: Cesarian delivery 07/22/2025, tonsillectomy, D and C in 2016, D and C in 2019. SOCIAL HISTORY: The patient occasionally uses marijuana. She denies any chest pain, palpitations, cough, fever, shortness of breath, flank pain, lower extremity pain and swelling. PHYSICAL EXAMINATION: Vital Signs: Blood pressure 121/75, heart rate 107, respirations 18, temperature 98.3, pulse ox is 96% on room air. HEENT: Oropharynx and sclerae clear. Lungs: Clear to auscultation bilaterally. Heart: Regular rate and rhythm. Abdomen: Old Pfannenstiel scar healing well. Extremities: Nontender. Skin: No gross rashes or lesion. Neurologic: No focal deficit. Breast: Firm mass in the right breast at the 9 o'clock position, tender. ASSESSMENT AND PLAN: Right breast abscess. PLAN: Interventional radiology ultrasound guided percutaneous drainage of breast abscess as inpatient. Continue on IV antibiotics x 48 hours. I discussed with the patient the nature of condition and recommendations, treatment plan. All questions answered. DT: 19:59:28 TT: 21:53:00 Ref: [id number] - TID: [id number] MTDD
[2025-09-01] MEDS: VANCOMYCIN/NS 1 GM IVPB 200 ML IV ×2 (10:13→21:22)
[2025-09-01 12:00] VITALS: BP 96/68; PULSE 78; RESP 19; TEMP 36.4; O2SAT 99
[2025-09-01 16:00] VITALS: BP 98/68; PULSE 79; RESP 17; TEMP 36.6; O2SAT 99
[2025-09-01] MEDS: IBUPROFEN TAB 400 MG TABLET 800 MG PO (16:07)
[2025-09-01] MEDS: SODIUM CHLORIDE 0.9% 1000 ML 1,000 ML 75 ML IV (16:12)
[2025-09-01 20:00] VITALS: BP 102/70; PULSE 79; RESP 18; TEMP 36.4; O2SAT 98
[2025-09-02] VITALS: BP 93/60; PULSE 75; RESP 15; TEMP 36.5; O2SAT 98
[2025-09-02 04:00] VITALS: BP 105/69; PULSE 81; RESP 20; TEMP 36.1; O2SAT 97
[2025-09-02] MEDS: SODIUM CHLORIDE 0.9% 1000 ML 1,000 ML 75 ML IV ×2 (05:39→18:41)
--- NOTE | 2025-09-02 06:54 | ESPR_ITS ---
RE: MUSA ARIZMENDI : 1995 DATE OF SERVICE: 09/02/2025 SUBJECTIVE: Patient has less breast tenderness on the right, but still reports feeling hardness in the breast. She denies any fever. The mass in the breast was too hard for needle-guided drainage yesterday. OBJECTIVE: Vital Signs: Blood pressure 93/60, heart rate 75, respiration 15, temperature is 97.7. Pulse ox is 98% on room air. Lungs: Clear to auscultation bilaterally. Cardiovascular: Heart regular rate and rhythm. Abdomen: Nontender. Extremities: Nontender. ASSESSMENT: Right breast abscess, improving with IV antibiotics. Too indurated for ultrasound guided percutaneous drainage. PLAN: Continue another 24 hours of IV antibiotics and possible repeat breast imaging. I discussed with the patient the nature of her condition and the recommended treatment plan. All questions answered. DT: 06:24:00 TT: 06:51:00 Ref: [id number] - TID: [id number]
[2025-09-02 08:00] VITALS: BP 113/57; PULSE 65; RESP 18; TEMP 36.2; O2SAT 97
[2025-09-02] MEDS: IBUPROFEN TAB 400 MG TABLET 800 MG PO (08:04)
[2025-09-02 10:00] LABS: Vancomycin,Trough 11.2 mcg/mL (5.0-10.0)
[2025-09-02] MEDS: VANCOMYCIN/NS 1 GM IVPB 200 ML IV ×2 (10:31→21:02)
[2025-09-02 12:00] VITALS: BP 106/60; PULSE 71; RESP 18; TEMP 36.2; O2SAT 97
[2025-09-02 16:00] VITALS: BP 113/86; PULSE 82; RESP 19; TEMP 36.4; O2SAT 100
--- NOTE | 2025-09-02 16:19 | PC.SS ---
rounding note: 24 hours of i.v. antibiotics then d/c home. No d/c needs.
--- NOTE | 2025-09-02 19:18 | PC.NURSE ---
Report received, pt standing up at side with in arms no current complaints at his time, significant other at side.
[2025-09-02 20:00] VITALS: BP 105/73; PULSE 86; RESP 18; TEMP 36.2; O2SAT 96
[2025-09-03] VITALS: BP 110/72; PULSE 75; RESP 17; TEMP 36.1; O2SAT 99
[2025-09-03 04:00] VITALS: BP 114/72; PULSE 85; RESP 18; TEMP 36.1; O2SAT 100
--- NOTE | 2025-09-03 06:15 | PC.NURSE ---
Dr. Price in to see pt, plan to discharge, pt states she needs to figure out how she is getting home first currently nobody up and able to take home
--- NOTE | 2025-09-03 06:30 | ESPR_ITS ---
RE: MUSA ARIZMENDI : 1995 DATE OF SERVICE: 09/03/2025 The patient reports less breast tenderness and less firmness in the area of the abscess. OBJECTIVE: Vital Signs: Blood pressure 114/72, heart rate 85, respirations 18, temperature is 97.0. Pulse oximetry is 100% on room air. Lungs: Clear to auscultation bilaterally. Heart: Regular rate and rhythm. Abdomen: Nontender. Extremities: Nontender. ASSESSMENT: Right breast abscess, resolving with intravenous antibiotics. Too firm for ultrasound-guided percutaneous drainage. PLAN: Discharge home on Bactrim DS twice a day for 10 days to cover for MRSA. Follow up in the office Friday to repeat breast imaging and determine if the mass may be amenable to percutaneous drainage or whether it is resolved with antibiotics. Discharge instructions given. Follow up in the office on Friday at 10:00. DT: 06:21:18 TT: 06:28:00 Ref: [id number] - TID: [id number]
--- NOTE | 2025-09-03 06:34 | ESDS_ITS ---
RE: MUSA ARIZMENDI : 1995 DATE OF ADMISSION: 08/31/2025 DATE OF DISCHARGE: 09/03/2025 This is a 30-year-old 4, para 2-0-2-2 with right breast abscess, who was admitted on 08/31/2025 due to painful right breast mass and refractory to antibiotics as an outpatient. The patient had been on dicloxacillin and this had failed to resolve her infection. The ultrasound showed the right breast abscess was 3.7 x 1.5 x 3.2 cm. She was started on vancomycin on 09/01/2025. The ultrasound was repeated and it was determined by the interventional radiologist that the abscess was too firm to drain percutaneously. The patient was continued on vancomycin and gradually improved. She remained afebrile throughout her hospital course with a normal white blood cell count. She was discharged home on 09/03/2025, reporting that the breast was less firm and tender. She was placed on Bactrim DS at discharge for 10 days and she was instructed to follow up in the office in 48 hours for re-exam and re-imaging of the right breast. Discharge instructions given. DISCHARGE DIAGNOSIS: Right breast abscess. DT: 06:24:36 TT: 06:32:00 Ref: [id number] - TID: [id number]
[2025-09-03 07:40] VITALS: BP 110/62; PULSE 68; RESP 18; TEMP 36.1; O2SAT 97
== END 2025-09-03 09:10 | disposition home or self-care (01) ==
LOC: SERX 19:38 → S3SX 09-01 05:41 → SERHOLD 09-05 07:35 → S3SX 09-05 07:35
PROVIDERS: Nurse Practitioner Primary Care; Admitting Provider Specialist; Emergency Provider Emergency Medicine; PCP Internal Medicine; Visit Provider Specialist
DX: N61.1 Abscess of the breast and nipple (principal)
CPT/HCPCS: 36415; 76641; 76642; 80053; 80202; 85025; 85384; 85610; 85730; 87040; 96361; 96365; 96374; 99283; G0378; J3373; J7030; A9270

== ENCOUNTER → 2025-09-05 | Outpatient (CLI) | payer BC, SELFPAY ==
--- NOTE | 2025-09-05 | XR_ITS ---
Examination: Breast ultrasound, unilateral, right complete Date and time of exam: August 29 47226, 1133 hours INDICATIONS: Ultrasound September 01, 2025 mass in the right breast 9 o'clock position to 4 o'clock position, likely infectious mass Technique: Real-time galicia scale ultrasonographic imaging performed right breast including all 4 quadrants as well as nipple retroareolar and axillary region. Findings: 9:00 irregular solid mass 2.6 x 1.3 x 1.5 cm Suspicious for abnormal axillary lymph nodes IMPRESSION: 9:00 mass irregular margins 2.6 x 1.3 x 1.5 cm with suspicious axillary lymph nodes Recommend ultrasound-guided biopsy of the breast mass to exclude the possibility of inflammatory breast cancer
== END | disposition home or self-care (01) ==
PROVIDERS: PCP Internal Medicine; Referring Provider Specialist; Visit Provider Specialist
DX: N63.15 Unspecified lump in the right breast, overlapping quadrants (principal)
CPT/HCPCS: 76641